=== PATIENT | female | born 1970 | race African-American/Black ===

== ENCOUNTER 2023-05-13 08:10 | Outpatient (CLI) | payer MEDICAID, SELFPAY ==
[2023-05-27 18:50] VITALS: BMI 48.4
--- NOTE | 2023-05-27 18:50 | WPDSLEEPSTUD ---
Sleep Study Date of Study: 05/13/23 Ordering Provider: Yolanda Melgar Interpreting Physician: Piper Reed DO Sleep Study Type: CPAP Titration Height: 1.63 m Weight: 127.913 kg Body Mass Index: 48.4 Neck Circumference (inches): 15.5 [place]: 10 Reason for Sleep Study The patient had a diagnostic polysomnogram at [facility] in [place], [place] on 05/01/2023 that showed an overall AHI of 78.4 with desaturation down to 71%. The patient spent 21.8 minutes, 5.1% of total sleep time with an oxygen saturation less than 88%. Sleep History The patient is a 52-year-old female with hypertension and chronic knee pain that had a sleep study ordered by her ENT physician due to the previous sleep study showing severe sleep apnea. The patient constantly awakens from sleep short of breath. She constantly awakens at night with heartburn, belching or cough. She constantly snores loudly enough that others complain. She constantly has trouble sleeping when she has a cold. She constantly wakes up gasping for air throughout the night. She constantly has breathing problems at night observed by herself or others. She constantly sweats excessively at night. She occasionally has heart palpitations or irregular heartbeats during the night. She rarely falls asleep during the day but never while driving. She rarely experiences loss of muscle tone when extremely emotional. She rarely has trouble at school or work due to sleepiness. She rarely feels unable to move while waking up or falling asleep. She rarely experiences vivid dreamlike scenes upon awakening or falling asleep. She constantly feels afraid of going to sleep. She rarely has nightmares. She rarely remembers her dreams. She denies having thoughts racing through her mind. She denies feeling sad or depressed. She rarely has anxiety. He rarely has muscular tension. She rarely notices parts of her body jerk. She rarely kicks during the night. She rarely has crawling and aching feelings in her legs but constantly has leg pain during the night. She rarely grinds her teeth during sleep but never awakens with morning jaw pain. She is constantly bothered by pain during the day. She constantly is awakened by pain during the night. She constantly wakes up feeling stiff the morning. She constantly wakes up with sore or achy muscles. She constantly wakes up with pain in the neck, spine and other joints. She goes to bed at 8:30 p.m. on weekdays and at 10:00 p.m. on the weekends. It takes her 40 minutes to fall asleep. if she wakes up throughout the night, it will take her an hour to fall back asleep. When she awakens, she will read the Bible. She wakes up at 4:30 a.m. on both weekdays and weekends. She typically gets 4 hours of sleep per night. She will stay in bed for 20 minutes after waking in the morning. She currently lives alone. She denies consuming any caffeinated beverages within 2 hours of bedtime. She denies engaging in physical exercise before bedtime. She will read before falling asleep. She denies watching television before falling asleep. She denies taking naps in afternoon or the evening. She consumes caffeinated beverages twice per week. She denies tobacco, alcohol and recreational drug use. Sleep Procedure A full night polysomnogram using the [employer] multi-channel system recorded the standard physiologic parameters including EEG, EOG, submentalis EMG, anterior tibialis EMG, EKG, body position, nasal and oral airflow using PAP device flow signal.? Respiratory parameters of chest and abdominal movements were recorded with Respiratory Inductance Plethysmography belts. Oxygen saturation was recorded by pulse oximetry. Video monitoring was also performed. Sleep stages, periodic limb movements, and EEG arousals were scored in 30 second epochs according to the criteria of the AASM Scoring Manual. The Apnea-Hypopnea Index was calculated using CMS guidelines for definitio
== END 2023-05-14 07:04 | disposition home or self-care (01) ==
LOC: ANHCSM 08:13
PROVIDERS: PCP Physician Assistant
DX: G47.33 Obstructive sleep apnea (adult) (pediatric) (principal)
CPT/HCPCS: 95811